=== PATIENT | male | born 1955 | race Caucasian/White ===

== ENCOUNTER 2017-01-09 19:53 | Emergency (ER) | payer OTHER ==
[2017-01-09 20:02] VITALS: BP 110/85; BMI 22.7
--- NOTE | 2017-01-09 20:31 | DR.GENAD ---
HPI - PCP Primary Care Physician: David Velazquez [place] - HPI Comment HPI Comment: PATIENTS DOCTOR TOLD HIM TO COME TO ED AND HAVE POTASSIUM RECHECK. PATIENT HAVE NO COMPLAINT. NO CHEST PAIN OR PALPITATION. NO IRREGULAR HEART RATE. - Complaint/Symptoms Chief Complaint Doctors Comments: ELEVATED POTASSIUM. Chief Complaint:: " My doctor called and said for me to go to the closet ER because my potassium is 7.5. They did blood work in there office yesterday morning." - Nurses notes reviewed Nurses Notes Review: Yes - Source History Provided: Patient - Mode of Arrival Mode of Arrival: Ambulatory - Timing Onset of Chief Complaint: 01/09/17 Came on: Suddenly - Duration Duration: Constant Duration: Days - Severity Severity: None PMH - PMH Past Medical History: Yes Past Medical History: Angina, Anxiety, Arthritis, COPD, Coronary Artery Disease , Depression, Diabetes, Dyslipidemia, GERD, Hypertension, Kidney Stones Past Surgical History: Yes Surgical History: Angioplasty/Stents, CABG/Valve Surgery, Lithotripsy, Other - Family History History of Family Medical Conditions: Yes Family Medical History: [place] - Social History Alcohol Use: Occasionally Do you use any recreational Drugs:: No - infectious screening Have you traveled outside the country in the last 6 months?: No ROS - Review of Systems Constitutional: No Symptoms Reported Eyes: No Symptoms Reported ENTM: No Symptoms Reported Respiratoy: No Symptoms Reported Cardiovascular: No Symptoms Reported Gastrointestinal/Abdominal: No Symptoms Reported Genitourinary: No Symptoms Reported Neurological: No Symptoms Reported Musculoskeletal: No Symptoms Reported Integumentary: No Symptoms Reported Hematologic/Lymphatic: No Symptoms Reported Endocrine: No Symptoms Reported All Other Systems: Reviewed and Negative PE - Vital Signs Vitals: Temperature 98.3 F Pulse Rate 98 Respiratory Rate 18 Blood Pressure [Right Arm] 88/57 Blood Pressure [Left Arm] 135/89 Blood Pressure 110/85 O2 Sat by Pulse Oximetry 97 - General Limitations: No Limitations General Appearance: Alert - Head Head Exam: Normal Inspection - Eyes Eye exam: Normal Appearance - ENT ENT Exam: Normal External Ear Exam Nose Exam: Normal Nose Exam Mouth Exam: Normal Inspection Throat Exam: Normal Inspection - Neck Neck Exam: Normal Inspection - Chest Chest Inspection: Symmetric Chest Wall Rise - Respiratory Respiratory Exam: Normal Lung Sounds Bilat Respiratory Exam: Bilateral Clear to Auscultation - Cardiovascular Cardiovascular Exam: Regular Rate, Normal Rhythm, Normal Heart Sounds - Abdominal Exam Abdominal Exam: Normal Bowel Sounds, Soft. negative: Tenderness - Extremities Extremities Exam: Normal Inspection - Back Back Exam: Normal Inspection - Neurologic Neurological Exam: Alert, Oriented X3 - Psychiatric Psychiatric Exam: Normal Affect, Normal Mood - Skin Skin Exam: Normal Color MDM - Differential Diagnosis Differential Diagnosis: ELEVATED POTASSIUM Course - Treatment Treatment: SEE ORDERS - Education/Counseling Education/Counseling: Patient, Education Educated On: Diagnosis, Needs for Follow Up ROR - Labs Reviewed Laboratory Results Reviewed?: Yes Result Diagrams: 01/09/17 20:35 Laboratory: Potassium 5.0 mmol/L (3.5-5.1) 01/09/17 20:35 - Diagnosis Discharge Problem: Abnormal laboratory test, Blood potassium level greater than 5.0 mEq/L - Discharge Plan Disposition: 01 HOME, SELF-CARE Condition: Stable - Follow ups/Referrals Follow ups/Referrals: [facility],None [Primary Care Provider] - 01/10/17 - Instructions Instructions: Potassium (K) Test Additional Instructions: RETURN TO ED IF WORSE.
== END 2017-01-09 21:31 | disposition home or self-care (01) ==
LOC: ER 20:12
DX: E87.5 Hyperkalemia (principal)
CPT/HCPCS: 36415; 84132; 99281; 99282